=== PATIENT | female | born 1965 | race African-American/Black ===

== ENCOUNTER 2018-09-01 07:51 | Inpatient (IN) ==
--- NOTE | 2018-09-01 08:08 | EKG Report ---
Test Performed on : 09/01/2018 08:01:13 AM Test Reason : WEAKNESS Blood Pressure : / mmHG Vent. Rate : 073 BPM Atrial Rate : 073 BPM P-R Int : 164 ms QRS Dur : 074 ms QT Int : 382 ms P-R-T Axes : 043 024 050 degrees QTc Int : 420 ms Normal sinus rhythm. Possible Left atrial enlargement Left ventricular hypertrophy Abnormal ECG When compared with ECG of 17-APR-2017 07:52, No significant change was found Unconfirmed Result
[2018-09-01 08:19] LABS: URINE SOURCE CLEAN CATCH
[2018-09-01 08:22] LABS: BILIRUBIN URINE NEGATIVE (NEGATIVE); BLOOD URINE NEGATIVE (NEGATIVE); COLOR YELLOW; GLUCOSE URINE NEGATIVE (NEGATIVE); KETONE URINE NEGATIVE (NEGATIVE); LEUKOCYTES URINE LARGE (NEGATIVE); NITRITE URINE NEGATIVE (NEGATIVE); PROTEIN URINE TRACE mg/dL (NEGATIVE); TURBIDITY URINE CLEAR (CLEAR); UR EPITHELIAL CELLS <10 /HPF (<10); URINE BACTERIA NEGATIVE /HPF; URINE RBC <10 /HPF (<10); URINE WBC <10 /HPF (<10); UROBILINOGEN URINE NORMAL (NORMAL)
[2018-09-01 08:58] LABS: BASO# 0.02 X1000 (0.0-0.2); BASO% 0.3 % (0.0-0.8); EOS# 0.08 X1000 (0.0-0.7); EOS% 1.2 % (0.0-10.0); HEMATOCRIT 37.6 % (37.0-47.0); HEMOGLOBIN 12.2 g/dL (12.0-16.0); LYMPH# 2.68 X1000 (1.2-3.4); LYMPH% 40.7 % (20.5-51.1); MCH 26.6 PG (27-31); MCHC 32.4 g/dL (33-37); MCV 81.9 FL (81-99); MONO# 0.75 X1000 (0.11-0.59); MONO% 11.4 % (1.7-9.3); MPV 9.3 FL (7.4-10.4); NEUT# 3.06 X1000 (1.4-6.5); NEUT% 46.4 % (42.2-75.2); PLT 376 X1000 (130-400); RBC 4.59 XMIL (4.2-5.4); RDW 13.5 % (11.5-14.5); WBC 6.59 X1000 (4.8-10.8)
[2018-09-01 09:04] LABS: INR 1.13; PROTIME 15.4 Seconds (11.0-16.0); PTT 30.9 Seconds (22.3-41.8)
[2018-09-01 09:12] LABS: ALB/GLOB RATIO 2.1; ALBUMIN 4.6 g/dL (3.5-5.0); ALKALINE PHOSPHATASE 65 U/L (32-104); BUN 10 mg/dL (8-22); CALCIUM 9.7 mg/dL (8.8-10.2); CREATININE 0.6 mg/dL (0.5-0.9); ESTIMATED GFR > 60; GLUCOSE 90 mg/dL (70-104); GOT 16 U/L (10-30); GPT 15 U/L (10-36); TCO2 23 mmol/L (25-35); TOTAL BILIRUBIN 0.39 mg/dL (0.20-1.00); TOTAL PROTEIN 6.8 g/dL (6.3-8.3)
[2018-09-01 09:18] LABS: CHLORIDE 104 mmol/L (98-107); POTASSIUM 4.1 mmol/L (3.5-5.1); SODIUM 139 mmol/L (136-145)
[2018-09-01 09:33] LABS: AGAP 12; COSMO 276
--- NOTE | 2018-09-01 09:35 | Diag Imaging Result Doc PS360 ---
CT HEAD W/O CONTRAST - 09/01/2018 INDICATION: stroke like symptoms COMPARISON: 04/17/2017 FINDINGS: There is a stable area of encephalomalacia at the posterior left occipital lobe. There is some stable minimal microvascular disease of the cerebral white matter. There is an old lacunar at the left thalamus that was not present on the prior exam. No skull fracture. The sinuses, mastoids, and middle ears are clear. IMPRESSION: Increasing chronic stroke burden. No acute process. This exam was performed using automated exposure control, adjustment of mA or kV according to patient size, and/or use of iterative reconstruction technique Electronically signed by Nik Jesus 09/01/2018 9:31 AM
--- NOTE | 2018-09-01 10:23 | PROVIDER DOCUMENTATION ---
HPI-Neurological Disorder - General Chief Complaint: Weakness Stated Complaint: RT SIDE WEAKNESS,DUARTE Time Seen by Provider: 09/01/18 09:39 Source: patient Allergies/Adverse Reactions: Patient Allergies Allergy/AdvReac Type Severity Reaction Status Date / Time No Known Allergies Allergy Verified 04/17/17 07:36 - History of Present Illness-Neuro Nature of Presenting Problem: Patient is a 53 yobf who complains of feeling "off balance" and right-sided ( right leg and right arm) weakness x 3 days. States symptoms improved yesterday. Also c/o left occipital headache. Denies any other symptoms. Pt a&ox4 and answers questions appropriately. Reports non-compliance with BP med. Headache Location: reports: occipital Onset/Duration: reports: 3 days ago Timing: reports: improving Context: reports: none. denies: impaired speech, paresthesia, facial droop Character of Altered Mental Status: reports: N/A Any recent trauma/injury?: reports: none Character of Deficits: reports: new weakness, decreased ability to walk ( "dragging" right foot). denies: altered sensation, vision problem/glaucoma, impaired speech, impaired swallowing, decreased ability to stand, falling New weakness or altered sensation location:: reports: RUE, RLE Cognitive Baseline: alert, oriented x3 Gait Baseline: walks without assistance Similar Symptoms Previously?: No Recently seen or treated by another doctor?: No Review of Systems - Adult - REVIEW OF SYSTEMS - ADULT Constitutional: denies: fever Eyes: reports: no symptoms reported Ears, Nose, Mouth & Throat: reports: no symptoms reported Cardiovascular: reports: no symptoms reported Respiratory: reports: no symptoms reported Gastrointestinal: reports: no symptoms reported Genitourinary: reports: no symptoms reported Musculoskeletal: reports: see HPI, muscle weakness Integumentary: reports: no symptoms reported Neurological: reports: see HPI, headache/migraines, loss of balance. denies: dizziness/vertigo, numbness, paresthesia, seizure, slurred speech, syncope, tremors Psychiatric: reports: no symptoms reported Endocrine: reports: no symptoms reported Hematologic/Lymphatic: reports: no symptoms reported Allergic/Immunologic: reports: no symptoms reported All Other Systems: Reviewed and Negative Past History - Adult - PAST MEDICAL HISTORY-ADULT Review of Records: reports: Old Records Reviewed, Nursing Assessment Review, Medications Reviewed, Social history reviewed & non-contributory. Major Childhood Illnesses: reports: denies history Cardiovascular: reports: HTN Respiratory: reports: denies history Gastrointestinal: reports: denies history Obstetrical/Gynecological: reports: denies history Genitourinary: reports: denies history Musculoskeletal: reports: denies history Neurological: reports: denies history Endocrine/Immune: reports: denies history Other Conditions: reports: other (chronic foot infection) - PRIOR SURGERIES/PROCEDURES Surgical/Procedure History: reports: reviewed, not pertinent, hysterectomy - PRIOR HOSPITALIZATIONS Prior Hospitalizations: reports: none - IMMUNIZATION STATUS Childhood Immunizations: UTD Flu Vaccine: See Nurse Assessment - FAMILY HISTORY Family History: reviewed, not pertinent - SOCIAL HISTORY Smoking: cigarettes, less than 1 pack/day Physical Exam- Neurological - Physical Exam-Neuro Initial Vital Signs Reviewed: Yes General Appearance: alert, no apparent distress. negative: lethargic, slow to respond Eye Exam: bilateral eye: normal inspection, PERRL, EOMI HENMT: normocephalic/atraumatic, moist mucous membranes, normal ENT inspection, TMs normal, pharynx normal Head Injury: no evidence of injury Neck: non-tender, full range of motion, supple, normal inspection Respiratory: chest non-tender, lungs clear, normal breath sounds, no pleuratic chest pain, no respiratory distress, no accessory muscle use Cardiovascular: normal peripheral pulses, regular rate, rhythm, no gallop, no murmur Abdominal Exam: normal bowel sounds, non tender, soft Extremity: normal range of motion, non-tender, 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 negative: abnormal eye position , abnormal pupil position, abnormal speech, facial asymmetry, facial droop, facial paresthesias, facial weakness, gaze palsy, tongue deviation to R, tongue deviation to L Coordination/Gait: normal finger to nose Motor/Sensory: no sensory deficit, no pronator drift. negative: sensory deficit , weak motor strength RUE, weak motor strength LUE, weak motor strength RLE, weak motor strength LLE Neurologic: grossly normal. negative: aphasia, facial droop, sensory deficit Integumentary: normal color, normal turgor, warm/dry. negative: cyanosis, diaphoresis, jaundice, mottled, pallor Psych/Mental Status: normal mood/affect, normal thought content, normal thought process, oriented x 3 - Glascow Coma Scale Best Eye Response: (4) open spontaneously Best Verbal Response: (5) oriented Best Motor Response: (6) obeys commands Progress - PLAN OF CARE/RESULTS Progress/Plan/Lab Results: Vital Signs - 8 hr 09/01/18 07:57 09/01/18 08:12 09/01/18 08:20 Temperature 97.9 F Pulse Rate 84 77 73 Respiratory Rate 18 19 18 Blood Pressure 187/117 176/124 O2 Sat by Pulse Oximetry 100 100 98 09/01/18 08:30 09/01/18 08:34 09/01/18 08:40 Temperature Pulse Rate 73 80 72 Respiratory Rate 19 26 H 17 Blood Pressure 187/120 O2 Sat by Pulse Oximetry 100 99 99 09/01/18 08:50 09/01/18 09:26 09/01/18 09:27 Temperature Pulse Rate 73 81 73 Respiratory Rate 20 22 16 Blood Pressure 204/111 O2 Sat by Pulse Oximetry 98 100 99 09/01/18 09:30 09/01/18 09:32 09/01/18 09:40 Temperature Pulse Rate 71 77 69 Respiratory Rate 19 20 26 H Blood Pressure 190/116 O2 Sat by Pulse Oximetry 99 100 98 09/01/18 09:50 09/01/18 10:00 09/01/18 10:02 Temperature Pulse Rate 75 82 74 Respiratory Rate 18 16 17 Blood Pressure 197/118 O2 Sat by Pulse Oximetry 98 100 99 09/01/18 10:03 Temperature Pulse Rate 75 Respiratory Rate 27 H Blood Pressure 188/121 O2 Sat by Pulse Oximetry 99 Laboratory Results - last 24 hr 09/01/18 09/01/18 09/01/18 08:10 08:20 08:20 WBC 6.59 RBC 4.59 Hgb 12.2 Hct 37.6 MCV 81.9 MCH 26.6 L MCHC 32.4 L RDW Std Deviation 13.5 Plt Count 376 MPV 9.3 Immature Gran % (Auto) 0.0 Neut % (Auto) 46.4 Lymph % (Auto) 40.7 [place] % (Auto) 11.4 H Eos % (Auto) 1.2 Baso % (Auto) 0.3 Immature Gran # (Auto) 0.00 Neut # (Auto) 3.06 Lymph # (Auto) 2.68 [place] # (Auto) 0.75 H Eos # (Auto) 0.08 Baso # (Auto) 0.02 PT INR PTT (Actin FS) Sodium 139 Potassium 4.1 Chloride 104 Carbon Dioxide 23 L Anion Gap 12 BUN 10 Creatinine 0.6 Estimated GFR/1.73 m2 > 60 BUN/Creatinine Ratio 17 Glucose 90 Calculated Osmolality 276 Calcium 9.7 Total Bilirubin 0.39 AST 16 ALT 15 Alkaline Phosphatase 65 Troponin T Total Protein 6.8 Albumin 4.6 Globulin 2.2 Albumin/Globulin Ratio 2.1 Urine Source CLEAN CATCH Urine Color YELLOW Urine Turbidity CLEAR Urine pH 6.0 Ur Specific [place] 1.020 Urine Protein TRACE A Ur Glucose (Stick) NEGATIVE Ur Ketones (Stick) NEGATIVE Urine Blood NEGATIVE Urine Nitrite NEGATIVE Urine Bilirubin NEGATIVE Urobilinogen Dipstick NORMAL Urine Leukocytes LARGE A Urine WBC (Auto) <10 Urine RBC (Auto) <10 U Epithel Cells (Auto) <10 Urine Bacteria (Auto) NEGATIVE 09/01/18 09/01/18 08:20 08:20 WBC RBC Hgb Hct MCV MCH MCHC RDW Std Deviation Plt Count MPV Immature Gran % (Auto) Neut % (Auto) Lymph % (Auto) [place] % (Auto) Eos % (Auto) Baso % (Auto) Immature Gran # (Auto) Neut # (Auto) Lymph # (Auto) [place] # (Auto) Eos # (Auto) Baso # (Auto) PT 15.4 INR 1.13 PTT (Actin FS) 30.9 Sodium Potassium Chloride Carbon Dioxide Anion Gap BUN Creatinine Estimated GFR/1.73 m2 BUN/Creatinine Ratio Glucose Calculated Osmolality Calcium Total Bilirubin AST ALT Alkaline Phosphatase Troponin T < 0.010 Total Protein Albumin Globulin Albumin/Globulin Ratio Urine Source Urine Color Urine Turbidity Urine pH Ur Specific [place] Urine Protein Ur Glucose (Stick) Ur Ketones (Stick) Urine Blood Urine Nitrite Urine Bilirubin Urobilinogen Dipstick Urine Leukocytes Urine WBC (Auto) Urine RBC (Auto) U Epithel Cells (Auto) Urine Bacteria (Auto) Orders Category Date Time Status Cardiac Monitoring DIRECTED Care 09/01/18 08:04 Active Saline Loc NOW Care 09/01/18 08:[address] HEAD W/O CONTRAST [CT] Stat Exams 09/01/18 09:15 Completed MRA BRAIN W/CONTRAST [MRI] Stat Exams 09/01/18 10:54 Ordered MRA NECK W/CONT [MRI] Stat Exams 09/01/18 10:54 Ordered MRI BRAIN W/O CONTRAST [MRI] Stat Exams 09/01/18 10:54 Ordered CBC WITH ELECTRONIC DIFF [HEME] Stat Lab 09/01/18 08:20 Completed COMPREHENSIVE METABOLIC PANEL [CHEM] Stat Lab 09/01/18 08:20 Completed PROTIME WITH INR [COAG] Stat Lab 09/01/18 08:20 Completed PTT [COAG] Stat Lab 09/01/18 08:20 Completed TROPONIN T Stat Lab 09/01/18 08:20 Completed URINALYSIS W/POSS RFLX CULT [URINALYSIS] Stat Lab 09/01/18 08:10 Completed URINE CULTURE [RM] Routine Lab 09/01/18 08:50 Received Aspirin Med 09/01/18 10:24 Discontinued 325 mg PO NOW ONE EKG [EKG] Stat Ther 09/01/18 08:01 Draft Discussed results and discharge plan of care with pt who is in agreement. Agrees to be admitted. Also discussed case with Dr. Zheng who recommends ASA administration. Spoke with ANATOLIY Morgan CREDIT RISK ASSOCIATE who accepted admission. Result Diagrams: 09/01/18 08:20 09/01/18 08:20 - CT/MRI 1 CT Study: Head ([facility] [address], [address], [place] [address] Department of Imaging Patient: DB TYLER Date: #: [id number] : 1965ADM Status: REG ERAcct#: [id number] Age/Sex: 53/FRoom/Bed: Loc: ED Ordering Physician: Triston Zheng MD Family Physician: None,PCP Reason for Procedure: stroke like symptoms Signed CT HEAD W/O CONTRAST - 09/01/2018 INDICATION: stroke like symptoms COMPARISON: FINDINGS: There is a stable area of encephalomalacia at the posterior left occipital lobe. There is some stable minimal microvascular disease of the cerebral white matter. There is an old lacunar at the left thalamus that was not present on the prior exam. No skull fracture. The sinuses , mastoids, and middle ears are clear. IMPRESSION: Increasing chronic stroke burden. No acute process. This exam was performed using automated exposure control, adjustment of mA or kV according to patient size, and/or use of iterative reconstruction technique Electronically signed by Nik Jesus 09/01 9:31 AM 09/01/1831 Interpreting Physician: Nik Jesus MD Dictated Date/Time: 09/01/18928 cc: Triston Zheng MD; None,PCP) - CONSULTS/PCP/HOSPITALIST Notification #1 *Consult/PCP/Hospitalist*: ANATOLIY Morgan CREDIT RISK ASSOCIATE Time Discussed: 10:48 Consult Disposition: Admit (to Dr. Phan) Departure - Departure Date of Disposition Decision: 09/01/18 Time of Disposition Decision: 10:48 DIAGNOSIS: CVA (cerebral vascular accident) Qualifiers: CVA mechanism: unspecified Qualified Code(s): I63.9 - Cerebral infarction, unspecified Hypertension Qualifiers: Hypertension type: unspecified Qualified Code(s): I10 - Essential (primary) hypertension Disposition: ADMITTED INPATIENT 09 Certified Medical Emergency: Emergent Condition: Stable Referrals and Follow-Ups: None,PCP [Primary Care Provider] - - Critical Care Note This patient required my direct & personal management of CC.: No Attestation - Physician/ ANATOLIY Attestation Patient care was provided by Advanced Practice Provider:: Yes Advanced Practice Provider:: Katelyn Camacho Advanced Practice Provider documentation review:: The Mid-level provider documentation, treatment plan and medical decision making was reviewed by the physician who agrees with all treatment and medical decision making by the MLP. The physician spent face to face time with patient:: No Advanced Practice Provider documentation review:: Supervising physician onsite and consulted in the evaluation and care of this patient. The physician did not have a face to face encounter with the patient. - NIH Stroke Scale NIH Type: Initial Evaluation Level of Consciousness: 0-Alert LOC Questions (ask month and age): 0-Answers Both Correctly LOC Commands (ask to open & close eyes;make a fist, let go): 0-Obeys Both Correctly Best Gaze (horizontal eye movement): 0-Normal Visual (use finger movement, counting or visual threat): 0-No Visual Loss Facial Palsy (show teeth or raise eyebrows & close eyes tght: 0-Symmetrical Movement Motor Function-left arm: 0-Normal Motor Function-right arm: 0-Normal Motor Function-left le-Normal Motor Function-right le-Normal Limb Ataxia([id number]-[id number], or heel to ledbetter): 0-No Ataxia Sensory(pin prick to face,arms,trunk,legs-compare side/side): 0-No Ataxia Best Language(name item/read sentence.Ex-Down to Earth): 0-No Aphasia Dysarthria(Pt read words or say words Ex.Mama,Tip-Top,Thanks: 0-Normal Articulation Extinction and Inattention: 0-Normal NIH Total Score: 0 Modified [place] Score Criteria: 0-no symptoms (Pt denies symptoms at this time, 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, leg strength strong and equal against resistance) Stroke tPA Guidelines - Inclusion Criteria for IV tPA 18 years old or older: Yes Ischemic stroke with measurable deficit: Yes Onset <3 hours ago *OR* 3-4.5 hours ago: No - Exclusion Criteria for IV tPA Evidence of intracranial hemorrhage on CT: No Presentation suggest SAH: No CT reveals defined area of hypodensity: Yes Evidence of AVM, neoplasm, aneurysm: No Seizure at stroke onset: No Active internal bleeding or acute trauma: No Platelet Count Less Than 100,000: No Heparin Within Last 48 HRS (PTT >Lab normal limits): No INR > 1.7 (warfarin use): No Use IIB/IIIA inhibitors within 24 hours: No Serious Head Trauma Within Last 3 Months: No Arterial Puncture Within Last 7 Days: No Lumbar Puncture Within Last 7 Days: No Repeated systolic Blood Pressure >185 or Diastolic >110: Yes - Additional Exclusion Criteria for IV tPA Currently on Coumadin: No Patient older than 80: No Prior stroke and diabetes: No Baseline NIHSS score > 25: No - Relative Contraindications to IV tPA CT reveals extensive area of infarct (>1/3 MCA territory): No Minor or rapidly improving stroke symptoms: Yes Major Surgery or Serious Trauma In Previous 14 Days: No AMI within 3 months: No Gastrointestinal or Urinary Tract hemorrhage in Past 21 Days: No Post - AMI pericarditis: No Blood Glucose Less Than 50 mg/dl or Greater Than 400 mg/dl: No - Consultation Candidate for:: NOT A CANDIDATE
[2018-09-01] MEDS ORDERED: ASPIRIN PO ONE (10:24)
[2018-09-01 11:41] LABS: HEMOGLOBIN A1C 5.2 % (4.8-6.0)
--- NOTE | 2018-09-01 12:43 | Diag Imaging Result Doc PS360 ---
MRI BRAIN W/O CONTRAST - 09/01/2018 INDICATION: stroke COMPARISON: Head CT from 09/01/2018 and 04/17/2017 FINDINGS: There is a very small focus of hyperintense signal on the diffusion-weighted imaging at the left thalamus compatible with an acute lacunar. There is a sizable area of old encephalomalacia at the posterior left occipital lobe. There is significant periventricular white matter chronic microvascular disease and there are some old lacunae in the basal ganglia. No intracranial mass or hemorrhage. IMPRESSION: Recent lacunar stroke in the left thalamus. Electronically signed by Nik Jesus 09/01/2018 12:40 PM
--- NOTE | 2018-09-01 12:46 | Diag Imaging Result Doc PS360 ---
MRA BRAIN W/O CONTRAST - 09/01/2018 INDICATION: stroke TECHNIQUE: Noncontrast [id number] technique was used COMPARISON: None FINDINGS: The right internal carotid artery demonstrates significant vascular disease causing some stenosis mainly at the cavernous portion. There is about 40-50% stenosis. There is some similar mild stenosis at the supraclinoid internal carotid artery with about 50% narrowing. There is some vascular disease of the distal M1 segment of the right middle cerebral artery in the sylvian fissure with a heterogeneous intensity plaque also causing about 40-50% stenosis. The anterior cerebral artery appears patent. The left internal carotid artery demonstrates some milder stenosis in the cavernous portion with about 30% narrowing. There is some similar disease with some narrowing at the supraclinoid portion, which is narrowed by about 50%. The middle and anterior cerebral arteries are grossly patent. The basilar artery is patent. The posterior cerebral arteries and cerebellar arteries appear patent. IMPRESSION: Widespread moderate cerebrovascular disease. Electronically signed by Nik Jesus 09/01/2018 12:44 PM
--- NOTE | 2018-09-01 12:48 | Diag Imaging Result Doc PS360 ---
MRA NECK W/CONT - 09/01/2018 INDICATION: stroke TECHNIQUE: MR angiogram of the neck with intravenous contrast COMPARISON: None FINDINGS: The aortic arch and the origins of the great vessels are normal. On the right side, there is significant plaque buildup at the carotid bifurcation with narrowing by about 50%. The internal carotid artery appears patent. On the left side, there is lesser plaque buildup at the carotid bifurcation without significant stenosis. Again, the internal carotid artery appears patent. The vertebral arteries appear patent. IMPRESSION: Mild to moderate vascular disease at the carotid bulbs bilaterally with some stenosis. Electronically signed by Nik Jesus 09/01/2018 12:46 PM
[2018-09-01] MEDS ORDERED: LABETALOL IV PRN (13:51)
[2018-09-01] MEDS: NICODERM PATCH TD SCH (14:45)
--- NOTE | 2018-09-01 15:55 | HISTORY AND PHYSICAL ---
PRIMARY CARE PHYSICIAN: None. CHIEF COMPLAINT: Right arm weakness. HISTORY OF PRESENT ILLNESS: Mrs. Srivastava is a 53-year-old female with a history of uncontrolled hypertension, medical noncompliance, nicotine dependence, who presents with right arm/right hand weakness that began on Friday. She began noticing symptoms with insidious onset on Friday, mostly right hand weakness and some disorientation/balance issues. She improved somewhat on Friday but on Friday and yesterday began having inability to write with her right hand due to weakness. She came to the ER for evaluation. Head CT was done and was found to be negative. We ordered a subsequent MRI of the brain which showed recent lacunar stroke in the left thalamus, consistent with her symptoms of right hand weakness. She denies any chest pain, shortness of breath, nausea, vomiting, diarrhea, fever, or chills. She has a history of hypertension, which is not controlled. She has not gone to the doctor in over three years. The rest of her laboratory data is unremarkable. She is actually doing remarkably well. Will admit her for further treatment and evaluation. PAST MEDICAL HISTORY: 1. Hypertension, uncontrolled. 2. Nicotine dependence. PAST SURGICAL HISTORY: Hysterectomy. SOCIAL HISTORY: Pack a day smoker. Denies alcohol or drug use. She is . Lives with her five year old grandson. She has three children. FAMILY HISTORY: Noncontributory. ALLERGIES: No known drug allergies. HOME MEDICATIONS: None. REVIEW OF SYSTEMS: A 14-point review of systems obtained and found to be negative with the exception of the HPI. PHYSICAL EXAMINATION: VITAL SIGNS: Blood pressure 188/121, heart rate is 75, respiratory rate is 18, O2 saturation 99% on room air, temperature 97.9. GENERAL: This is an obese, female lying in the hospital bed in no acute distress. NEUROLOGICAL: Awake, alert, and oriented. Follows commands. 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 Otherwise, no focal deficits are noted. HEENT: Head is atraumatic and normocephalic. Pupils are equal, round and reactive to light. Oral mucosa is moist. NECK: Trachea is midline. Supple. No JVD. CHEST: Clear to auscultation.No wheezing, rales or rhonchi. CARDIOVASCULAR: Regular rate and rhythm. S1 and S2 is noted. There are no murmurs. GASTROINTESTINAL: Soft. Nondistended. Nontender. Bowel sounds are positive. EXTREMITIES: No edema. Pulses 1+ bilaterally. IMAGING: MRI of the brain shows left thalamic lacunar infarct. Neck MRA shows mild to moderate vascular disease of the carotid bulbs with some stenosis. Brain MRI shows widespread moderate cerebrovascular disease. Head CT shows increasing chronic stroke burden. No acute process. EKG shows sinus rhythm without acute ST or T abnormalities. LABORATORY DATA: Reviewed. Unremarkable. She does have leukocytes in her urine but denies any urinary tract symptoms. ASSESSMENT AND PLAN: 1. Acute lacunar infarct: Continue aspirin. Make sure and add a statin and check cholesterol and A1c levels in the morning. Will encourage nicotine cessation as well as medical compliance with her antihypertensives. Will follow her neuro status closely. Consult Neurology. Check echocardiogram. 2. Uncontrolled hypertension: Medications have been added. Will allow for permissive hypertension. 3. Nicotine dependence: The patient has been advised to quit smoking. Will add nicotine patch. Continue cessation education on a daily basis. Further recommendations to follow. Dictated by MAHNAZ Haywood for Sabina Phan MD cc: MAHNAZ Haywood MD I performed a face to face encounter on the patient. I reviewed all labs and imaging. I agree with the H&P as dictated. The patient presented to the ER with a chief complaint of right sided numbness and tingling. In the ER, a head CT was done that showed chronic changes. An MRI of the brain was done that revealed an acute left thalamic infarction. On exam, the patient was alert and oriented x 4. Strength in the right hand is 4/5. The patient will be admitted to the medical floor on telemetry with a diagnosis of acute CVA and Malignant hypertension. Will also order and echocardiogram and carotid ultrasound. Will start the patient on aspirin and lipitor. Neurology and physical therapy will be consulted. AKASH
--- NOTE | 2018-09-01 17:19 | CONSULTATION ---
DATE OF CONSULTATION: 09/01/2018 Ms. Srivastava is 53 years old and she has had a stroke. History from the patient is that she woke up in bed 4 days ago and could not move her right side. She could not get out of bed. She rested through the day and gradually improved. She was much better the next day and the next. She believes she was just about completely back to normal yesterday, so she decided to present to the emergency room at that point. Unfortunately, the emergency room was crowded and she left without being seen. She returned to the emergency room today reporting continued recovery. She reports no previous stroke. She has a lot of headache and headache may have been temporarily worse than usual a few days ago. There was never altered consciousness, altered awareness, memory gap. She spoke with family and did not notice slurred speech but believes family reported her speech was briefly slurred. There was no vision disturbance. She did not have trouble understanding what was said to her. Her only deficit now, by her report, is difficulty holding things in her right hand, particularly with hand writing. Workup here includes brain MRI showing evidence of subacute left thalamic infarction. There is the usual scattered white matter signal across both hemispheres. There is no evidence of bleeding. Neck and head MRA show evidence of diffuse atherosclerotic disease but no occlusions. Systolic blood pressures have ranged 170s to 200s. She has been afebrile. She reports being told she had high blood pressure many years ago. She has not taken her blood pressure medicine in recent years. She continues to smoke cigarettes. She reports never being told she has diabetes mellitus or high cholesterol and she has never taken medicine for those problems. She denies illicit drug use. On exam, she is awake, alert, attentive, cheerful, oriented. Speech is not dysarthric. Language function is intact on careful bedside testing. Recent and remote memory are good. Head and neck are unremarkable. Visual ambrose are full tested by confrontational finger counting. Extraocular movements are full. Facial motility is good bilaterally. The right nasolabial fold may be very slightly less prominent than the left. Gag is intact. Tongue protrudes slightly to the right. She has good power in the arms and legs. Tone is slightly increased in the right arm. She did rapid alternating movements well with each hand. She did well on finger-to- nose testing bilaterally. She reports symmetric pinprick and light touch appreciation over the right and left limbs. I did not test her gait. IMPRESSION: Relatively pure motor right hemiparesis with mostly tonal asymmetry remaining. This is consistent with the subcortical infarction noted on imaging. I do not see evidence of vision, language or sensory deficit. She has risk factors for cerebrovascular ischemic problem including her untreated hypertension and continued cigarette smoking. I believe there is order to check her lipids this admission. Other workup is in progress. I do not have anything to add urgently from neurologic standpoint. I encouraged her to quit smoking cigarettes and to take her medicines as prescribed. Thanks for asking Neurology to see Ms. Srivastava. cc: MD AKASH Almazan III
--- NOTE | 2018-09-01 18:45 | Carotid Study ---
DATE: 09/01/2018 PROCEDURE: Carotid duplex imaging. REFERRING PHYSICIAN: Dr. Sabina Phan. INTERPRETING PHYSICIAN: Dr. Kyaw Pabon TECH: [place]. INDICATIONS: The patient has had right-sided weakness and a CVA. OBSERVED DATA RIGHT LEFT Brachial Blood Pressure Carotid Pulse Bruits: Carotid/Sub DIAGRAM OF ULTRASOUND IMAGING R L RIGHT INT EXT INT EXT LEFT Terrance (cm/s) Terrance (cm/s) Subclavian 66/0 Subclavian 62/0 CCA Proximal 51/12 CCA Proximal 63/14 CCA Distal 45/15 CCA Distal 47/14 Bulb 34/10 Bulb 37/11 ICA Proximal 36/11 ICA Proximal 36/12 ICA Mid 54/20 ICA Mid 38/13 ICA Distal 47/15 ICA Distal 52/19 ECA 45/10 ECA 36/9 Vertebral 39/13 A Vertebral 54/16 A ICA/CCA Ratio 1.1 ICA/CCA Ratio 0.82 % Stenosis 0-39 % Stenosis 0-39 PHYSICIAN INTERPRETATION: Some irregular plaque is present at the takeoff of the right internal. No significant plaque is seen on the left. This does not produce a stenosis of hemodynamic consequence. There is antegrade vertebral flow bilaterally. cc: MD Sabina Bullock MD [facility]
[2018-09-01] MEDS ORDERED: TYLENOL PO PRN (19:44)
[2018-09-01] MEDS: COREG PO SCH (19:59)
[2018-09-01] MEDS: NORVASC PO SCH (19:59)
[2018-09-01] MEDS ORDERED: LIPITOR PO SCH (21:00)
[2018-09-02 07:35] VITALS: BP 167/92
--- NOTE | 2018-09-02 07:50 | ECHO REPORT ---
ORDER DATE: 09/01/2018 ECHOCARDIOGRAPHIC MEASUREMENTS: 1. Left ventricular end-diastolic diameter 4.9 2. End-systolic diameter 2.6. 3. Septal thickness 1.2. 4. Posterior wall thickness 1.2. 5. Aortic root 3.0. 6. Left atrium 3.2. SUMMARY: 1. Technically difficult study due to limited acoustic window quality. 2. Aortic valve is without evidence of structural abnormality and opens adequately on 2- dimensional images. Peak gradient across the aortic valve is 14 mmHg. There is mild aortic regurgitation. Mitral and tricuspid valves are without evidence of structural abnormality while pulmonic valve is not well demonstrated and opens adequately on 2-dimensional images. Peak gradient across the aortic valve is 14 mmHg. There is mild aortic regurgitation. Mitral and tricuspid valves are without evidence of structural abnormality, while pulmonic valve is not well demonstrated. There is mild tricuspid regurgitation. Estimated systolic PA pressure by Doppler is 45 mmHg suggesting mild pulmonary hypertension. Aortic root is normal in size. 3. Normal left chamber size with mild concentric left hypertrophy is demonstrated. Estimated left ventricular ejection fraction appears to be approximately 60%. No regional wall motion abnormality is appreciated. Doppler suggests grade 1 left ventricular diastolic dysfunction. Left atrium, right atrium, right ventricle are normal in size with grossly preserved right ventricular systolic function. 4. No pericardial effusion. 5. Appearance of inferior vena cava suggests normal central venous pressure. 6. Intravenous agitated saline contrast study was performed and reveals no evidence of right-to- left intracardiac shunting. cc: MD Sabina Aranda MD
[2018-09-02 07:52] LABS: HEMATOCRIT 39.3 % (37.0-47.0); HEMOGLOBIN 12.7 g/dL (12.0-16.0); MCHC 32.3 g/dL (33-37); MCV 83.4 FL (81-99); MPV 9.6 FL (7.4-10.4); RBC 4.71 XMIL (4.2-5.4); WBC 5.9 X1000 (4.8-10.8)
[2018-09-02 08:20] LABS: AGAP 13; BUN 10 mg/dL (8-22); CALCIUM 10.1 mg/dL (8.8-10.2); CHLORIDE 104 mmol/L (98-107); CHOLESTEROL 186 mg/dL (0-200); COSMO 279; CREATININE 0.6 mg/dL (0.5-0.9); ESTIMATED GFR > 60; GLUCOSE 81 mg/dL (70-104); HDL 58 mg/dL (45-65); LDL 111 mg/dL; POTASSIUM 4.2 mmol/L (3.5-5.1); SODIUM 141 mmol/L (136-145); TCO2 24 mmol/L (25-35); TRIGLYCERIDES 86 mg/dL (35-135); VLDL 17 mg/dL
[2018-09-02] MEDS: COREG PO SCH (08:30)
[2018-09-02] MEDS: NORVASC PO SCH (08:30)
[2018-09-02] MEDS: NICODERM PATCH TD SCH (08:30)
[2018-09-02] MEDS ORDERED: ASPIRIN PO ONE (08:59)
--- NOTE | 2018-09-04 16:04 | DISCHARGE SUMMARY ---
ADMISSION DATE: 09/01/2018 DISCHARGE DATE: 09/02/2018 FINAL DISCHARGE DIAGNOSIS: 1. Acute left thalamus cerebrovascular accident. 2. Uncontrolled hypertension. 3. Tobacco dependence. HOSPITAL COURSE: Ms. Srivastava is a 53-year-old female with a history of uncontrolled hypertension due to noncompliance and tobacco dependence who presented to the ER with a chief complaint of right-sided upper extremity weakness. While in the ER a head CT was done that revealed increasing chronic stroke burden. While in the ER also a brain MRI was done that revealed a recent lacunar stroke in the left thalamus. In light of these findings the patient was admitted for further stroke workup. Neurology was consulted for further recommendations. The patient also had a carotid Doppler study done that revealed no significant plaque seen. Also an echocardiogram was done that revealed left ventricular diastolic dysfunction with an EF of 60% as well as mild pulmonary hypertension. The patient was started on full-dose aspirin as well as Lipitor. Adjustments were made to the patient's antihypertensive regimen and she was counseled extensively about smoking cessation. The patient was seen by the physical therapist and was able to ambulate without any difficulty. The patient improved clinically and was discharged home on 09/02/2018. DISCHARGE MEDICATIONS: 1. Norvasc 5 mg p.o. twice a day. 2. Aspirin 325 mg p.o. daily. 3. Coreg 12.5 mg oral twice a day. 4. Lipitor 40 mg p.o. at bedtime. DISCHARGE DIET: Low-sodium, low-cholesterol diet. ACTIVITY: As tolerated. FOLLOWUP INSTRUCTIONS: The patient will need to follow up with Dr. House in 1 month. cc: Sabina Phan MD
== END 2018-09-02 10:44 | disposition home or self-care (01) | DRG 65 ==
LOC: ED 07:51 → EDIPHOLD 13:13 → 3N 16:57
PROVIDERS: ATTEND Internal Medicine
CPT/HCPCS: 70450; 70544; 70548; 70551; 80048; 80053; 80061; 81001; 83036; 84484; 85025; 85027; 85610; 85730; 87088; 93005; 93306; 93880; 97110; 97162; 99285; A9270; A9579